=== PATIENT | male | born 1990 | race Caucasian/White ===

== ENCOUNTER 2021-04-16 16:39 | Emergency (ER) | payer MEDICARE ==
[~2021-04-16] VITALS: Ht 175.3 cm; Wt 89.8 kg
[2021-04-16 16:42] VITALS: BP 124/69
[2021-04-16 17:44] VITALS: BP 124/69
[2021-04-16 18:46] VITALS: BP 124/69
[2021-04-16 19:32] LABS: BASOPHILS % (AUTO) 0.4 % (0.0-5.0); EOSINOPHILS % (AUTO) 2.4 % (0.0-8.0); HEMATOCRIT 40.3 % (42-54); LYMPHOCYTES % (AUTO) 27.7 % (21.0-51.0); MEAN CORPUSCULAR HEMOGLOBIN 29.4 pg (27.0-33.0); MEAN CORPUSCULAR VOLUME 86.5 fL (79-99); MONOCYTES % (AUTO) 6.1 % (3.0-13.0); PLATELET COUNT (AUTO) 219 K/uL (130-400); RED BLOOD CELL COUNT(AUTO) 4.66 MIL/uL (4.50-6.20); RED CELL DISTRIBUTION WIDTH 12.5 % (11.0-15.5); WHITE BLOOD COUNT (AUTO) 8.4 K/uL (4.8-10.8)
[2021-04-16 19:42] LABS: CREATININE 0.7 mg/dL (0.5-1.5); POTASSIUM 4.2 mmol/L (3.5-5.1)
[2021-04-16 19:47] LABS: BILIRUBIN,TOTAL 0.6 mg/dL (0.2-1.0); TOTAL PROTEIN, SERUM 7.1 g/dL (6.0-8.3)
== END 2021-04-16 20:00 | disposition home or self-care (01) ==
LOC: EDH 16:39
DX: F41.9 Anxiety disorder, unspecified (principal); F31.9 Bipolar disorder, unspecified; F43.12 Post-traumatic stress disorder, chronic; J45.909 Unspecified asthma, uncomplicated
CPT/HCPCS: 36415; 71045; 80053; 82550; 84484; 85025; 93005

== ENCOUNTER 2023-11-25 18:46 | Emergency (ER) | payer MEDICARE ==
[~2023-11-25] VITALS: Ht 175.3 cm; Wt 96.2 kg
[2023-11-25 19:42] LABS: APPEARANCE,URINE CLEAR (CLEAR); BILIRUBIN,URINE NEGATIVE (NEGATIVE); GLUCOSE, URINE (UA) NEGATIVE (NEGATIVE); KETONES,URINE NEGATIVE (NEGATIVE); LEUKOCYTE ESTERASE ,URINE NEGATIVE Leu/uL (NEGATIVE); NITRATE,URINE NEGATIVE (NEGATIVE); OCCULT BLOOD,URINE NEGATIVE (NEGATIVE); PROTEIN,URINE NEGATIVE (NEGATIVE); UROBILINOGEN,URINE 0.2 mg/dL (0.2-1.0)
[2023-11-25 19:46] LABS: ADD UA MICROSCOPIC NO; COLOR,URINE STRAW (YELLOW)
[2023-11-25 20:01] LABS: BASOPHILS # (AUTO) 0.04 K/uL (0.00-0.20); BASOPHILS % (AUTO) 0.5 % (0.0-5.0); EOSINOPHILS # (AUTO) 0.16 K/uL (0.00-0.70); EOSINOPHILS % (AUTO) 1.9 % (0.0-8.0); HEMATOCRIT 42.5 % (42-54); IMMATURE GRANULOCYTE ABSOLUTE 0.02 K/uL (0-1); LYMPHOCYTES # (AUTO) 2.3 K/uL (1.0-4.8); LYMPHOCYTES % (AUTO) 27.7 % (21.0-51.0); MEAN CORPUSCULAR HEMOGLOBIN 29.5 pg (27.0-33.0); MEAN CORPUSCULAR HGB CONC 35.3 g/dL (32.0-36.0); MEAN CORPUSCULAR VOLUME 83.5 fL (79-99); MONOCYTES # (AUTO) 0.6 K/uL (0.1-1.0); MONOCYTES % (AUTO) 7.2 % (3.0-13.0); NEUTROPHILS # (AUTO) 5.3 K/uL (1.8-7.7); NEUTROPHILS % (AUTO) 62.5 % (40.0-77.0); PLATELET COUNT (AUTO) 219 K/uL (130-400); RED BLOOD CELL COUNT(AUTO) 5.09 MIL/uL (4.50-6.20); RED CELL DISTRIBUTION WIDTH 12.4 % (11.0-15.5); WHITE BLOOD COUNT (AUTO) 8.4 K/uL (4.8-10.8)
[2023-11-25] MEDS: ZOSYN 3.375GM +NS 50ML IV SCH (20:01)
[2023-11-25 20:19] LABS: CREATININE 0.7 mg/dL (0.5-1.5)
[2023-11-25 20:23] LABS: BILIRUBIN,TOTAL 0.4 mg/dL (0.2-1.0); TOTAL PROTEIN, SERUM 7.2 g/dL (6.0-8.3)
[2023-11-25] MEDS ORDERED: PALI6TAB6 PO (20:31)
[2023-11-25] MEDS ORDERED: OXYB5TAB20 PO (20:32)
[2023-11-25] MEDS ORDERED: PRAZ5CAP2 PO (20:32)
[2023-11-25] MEDS ORDERED: TRAZ-185 PO (20:33)
[2023-11-25] MEDS ORDERED: PANT40TA54 PO (20:34)
[2023-11-25] MEDS ORDERED: DIVA-76 PO (20:35)
[2023-11-25] MEDS: KETOROLAC 30MG VIAL (30MG/ML) IVP ONE (21:04)
[2023-11-25] MEDS ORDERED: AMOX-427 PO (22:40)
[2023-11-25 22:42] VITALS: BP 134/72; PULSE 98; RESP 18; O2SAT 98
== END 2023-11-25 22:51 | disposition home or self-care (01) ==
LOC: EDH 18:46
DX: L97.219 Non-pressure chronic ulcer of right calf with unspecified severity (principal); F41.9 Anxiety disorder, unspecified; J45.909 Unspecified asthma, uncomplicated; Z79.899 Other long term (current) drug therapy
CPT/HCPCS: 99285; 96365; 80053; 85025; 87040 ×2; 83605; 81003; 36415; 76882; J2543